=== PATIENT | female | born 2000 | race Asian ===

== ENCOUNTER 2018-04-26 21:43 | Emergency (ER) | payer OTHER ==
[~2018-04-26] VITALS: Ht 157.5 cm; Wt 50.8 kg
[2018-04-26 22:29] VITALS: Ht 157.5 cm; Wt 50.8 kg
[2018-04-26 23:23] LABS: BASOPHIL % 0.4 % (0-2); PLATELET COUNT 275 x10^3mcL (130-400)
[2018-04-26 23:26] LABS: RED CELL DISTRIBUTION WIDTH 18.8 % (11.5-14.5)
[2018-04-26 23:43] LABS: CALCIUM 8.8 mg/dL (8.5-10.1); CARBON DIOXIDE 24.7 mmol/L (21-32); CHLORIDE SERUM 107 mmol/L (98-107); CREATININE SERUM 0.5 mg/dL (0.6-1.0); GFR1 > 60 mL/min; GLUCOSE SERUM 107 mg/dL (74-106); POTASSIUM SERUM 3.6 mmol/L (3.5-5.1); SODIUM SERUM 143 mmol/L (136-145)
[2018-04-26 23:48] LABS: ALBUMIN 3.7 g/dL (3.4-5.0); ALKALINE PHOSPHATASE 60 U/L (46-116); AST/SGOT 18 U/L (15-37); BILIRUBIN TOTAL 0.38 mg/dL (0.20-1.00); TOTAL PROTEIN, SERUM 7.9 g/dL (6.4-8.2)
[2018-04-26 23:59] LABS: ALT/SGPT 5 U/L (14-59)
[2018-04-27 01:14] VITALS: BP 97/48
== END 2018-04-27 01:14 | disposition home or self-care (01) ==
LOC: ED 21:43
PROVIDERS: Emergency Medicine
DX: D64.9 Anemia, unspecified (principal); N94.6 Dysmenorrhea, unspecified
CPT/HCPCS: J1885; J2405; J7030; Q0092